=== PATIENT | female | born 1990 | race Caucasian/White ===

== ENCOUNTER 2021-03-31 15:40 | Emergency (ER) | payer OTHER ==
[~2021-03-31] VITALS: Ht 160 cm; Wt 72.7 kg
[2021-03-31 16:26] VITALS: BP 116/68
[2021-03-31 19:34] LABS: COVID AG,FIA SOURCE NASOPHARYNGEAL
== END 2021-03-31 23:48 | disposition home or self-care (01) ==
LOC: EMS 15:44
DX: U07.1 COVID-19 (principal); F17.200 Nicotine dependence, unspecified, uncomplicated
CPT/HCPCS: 87426; 99283; U0003

== ENCOUNTER 2021-04-07 17:55 | Emergency (ER) | payer OTHER ==
[~2021-04-07] VITALS: Ht 160 cm; Wt 71.0 kg
[2021-04-07 18:31] VITALS: BP 112/64
[2021-04-07] MEDS ORDERED: SERT-162 PO (19:55)
== END 2021-04-07 20:07 | disposition home or self-care (01) ==
LOC: EMS 17:58
DX: F41.9 Anxiety disorder, unspecified (principal); F32.9 Major depressive disorder, single episode, unspecified; Z76.0 Encounter for issue of repeat prescription
CPT/HCPCS: 99281; Z7502